=== PATIENT | male | born 1985 | race Caucasian/White ===

== ENCOUNTER 2017-10-01 12:53 | Emergency (ER) | payer SELFPAY ==
[2017-10-01 13:16] VITALS: BP 123/67
--- NOTE | 2017-10-01 14:44 | ER Document Report ---
ED General - General Chief Complaint: Abscess Stated Complaint: POSSIBLE ABSCESS Time Seen by Provider: 10/01/17 14:25 Notes: Patient presents with several days of developing what he suspects is an abscess above his top lip on left side of face as well as on lower left facial cheek. Denies any fevers or chills. Patient states he is a type I diabetic on insulin and due to that was concerned of possible abscess development. TRAVEL OUTSIDE OF THE [place] IN LAST 30 DAYS: No - Related Data Allergies/Adverse Reactions: ketorolac tromethamine [From Toradol] Allergy (Verified 10/01/17 12:57) tramadol [Tramadol] Allergy (Verified 10/01/17 12:57) Past Medical History - Social History Smoking Status: Current Every Day Smoker Family History: Reviewed & Not Pertinent Pulmonary Medical History: Reports: Hx Asthma Endocrine Medical History: Reports: Hx Diabetes Mellitus Type 1 Psychiatric Medical History: Reports: Hx Depression - Immunizations Immunizations up to date: Yes Hx Diphtheria, Pertussis, Tetanus Vaccination: Yes Review of Systems - Review of Systems Constitutional: No symptoms reported EENT: No symptoms reported Cardiovascular: No symptoms reported Respiratory: No symptoms reported Gastrointestinal: No symptoms reported Genitourinary: No symptoms reported Male Genitourinary: No symptoms reported Musculoskeletal: No symptoms reported Skin: See HPI Hematologic/Lymphatic: No symptoms reported Neurological/Psychological: No symptoms reported Physical Exam - Vital signs Vitals: Temp Pulse Resp BP Pulse Ox 98.4 F 77 18 123/67 96 10/01/17 13:14 10/01/17 13:14 10/01/17 13:14 10/01/17 13:14 10/01/17 13:14 - General General appearance: Appears well, Alert - HEENT Head: Normocephalic, Atraumatic - Respiratory Respiratory status: No respiratory distress Chest status: Nontender - A well Breath sounds: Wheezing Chest palpation: Normal - Cardiovascular Rhythm: Regular Heart sounds: Normal auscultation Murmur: No - Skin Skin Temperature: Warm Skin Moisture: Dry - 2 small papules on face one above upper lip left side of face and one her left facial cheek both have sinus openings nondraining no induration or fluctuance and no evidence of cellulitis at this time. Course - Re-evaluation Re-evalutation: 10/01/17 14:42 Patient's physical presentation consistent with impetigo versus folliculitis. Will provide bacitracin return precautions provided. - Vital Signs Vital signs: Temp Pulse Resp BP Pulse Ox 98.4 F 77 18 123/67 96 10/01/17 13:14 10/01/17 13:14 10/01/17 13:14 10/01/17 13:14 10/01/17 13:14 Discharge - Discharge Clinical Impression: Folliculitis Disposition: HOME, SELF-CARE Instructions: Folliculitis ([facility]), Bactroban Ointment ([facility]) Additional Instructions: Please apply ointment provided twice a day until symptoms resolved Prescriptions: Mupirocin [Bactroban 2% Ointment 22 gm] 1 applic TP TID #1 tube
[2017-10-01] MEDS ORDERED: MUPIROCIN 2% OINTMENT 22 GM TP ONE (14:48)
== END 2017-10-01 14:54 | disposition home or self-care (01) ==
LOC: ER 12:53
DX: L73.9 Follicular disorder, unspecified (principal); E10.9 Type 1 diabetes mellitus without complications; F17.200 Nicotine dependence, unspecified, uncomplicated; J45.909 Unspecified asthma, uncomplicated; Z88.8 Allergy status to other drugs, medicaments and biological substances; Z88.5 Allergy status to narcotic agent
CPT/HCPCS: 99283; J3490